=== PATIENT | female | born 1995 | race Caucasian/White ===

== ENCOUNTER 2018-03-29 16:35 | Emergency (ER) | payer MEDICAID ==
[~2018-03-29] VITALS: Ht 160 cm; Wt 96.0 kg
[2018-03-29 23:16] VITALS: BP 118/68
== END 2018-03-29 23:15 | disposition home or self-care (01) ==
LOC: ER 16:35
DX: S83.92XA Sprain of unspecified site of left knee, initial encounter (principal); Z90.49 Acquired absence of other specified parts of digestive tract; W10.8XXA Fall (on) (from) other stairs and steps, initial encounter; Y93.89 Activity, other specified; Y92.018 Other place in single-family (private) house as the place of occurrence of the external cause
CPT/HCPCS: 73562; 81025; 99284